=== PATIENT | male | born 1960 | race Caucasian/White ===

== ENCOUNTER 2024-02-21 | Emergency (ER) | payer OTHER ==
[2024-02-21] MEDS ORDERED: SMZ./TMP. 800/160 MG TABLET ONE (00:18)
--- NOTE | 2024-02-21 00:19 | EDPHYS ---
Physician Documentation [facility] Name: Derrek Wood Age: 63 yrs Sex: Male : 1960 Arrival Date: 02/21/2024 Time: 00:00 Bed 7 Private MD: ED Physician Ana Patton HPI: 02/20 00:16 This 63 yrs old Male presents to ER via Unassigned with complaints of Rash. sp3 00:16 63-year-old male with no past medical history on no medications presents to the ED with sp3 chief complaint rash bilateral lower extremities with streaking after multiple mosquito bites that occurred yesterday. He contacted his PCP who suggested he come to the ED for evaluation. He denies any other symptoms including fever, URI symptoms, headache, chest pain, shortness of breath, other upper body rash, oropharyngeal swelling, syncope, near syncope, rash anywhere else, pruritus, or any other signs or symptoms on ROS at this time.'. Historical: - Allergies: 00:16 No Known Allergies; cm10 - Home Meds: 00:16 None [Active]; cm10 - PMHx: 00:16 None; cm10 - PSHx: 00:16 None; cm10 - Immunization history:: Adult Immunizations up to date. - Infectious Disease History:: Denies. - Social history:: Smoking status: Patient denies any tobacco usage or history of. ROS: 00:16 Constitutional: Negative for fever, chills, and weight loss, Eyes: Negative for injury, sp3 pain, redness, and discharge, ENT: Negative for injury, pain, and discharge, Neck: Negative for injury, pain, and swelling, Cardiovascular: Negative for chest pain, palpitations, and edema, Respiratory: Negative for shortness of breath, cough, wheezing, and pleuritic chest pain, Abdomen/GI: Negative for abdominal pain, nausea, vomiting, diarrhea, and constipation, Back: Negative for injury and pain, Neuro: Negative for headache, weakness, numbness, tingling, and seizure, Psych: Negative for depression, anxiety, suicide ideation, homicidal ideation, and hallucinations, Allergy/Immunology: Negative for hives, rash, and allergies, Endocrine: Negative for neck swelling, polydipsia, polyuria, polyphagia, and marked weight changes, Hematologic/Lymphatic: Negative for swollen nodes, abnormal bleeding, and unusual bruising, 00:16 All other systems are negative, Exam: 00:17 Constitutional: This is a well developed, well nourished patient who is awake, alert, sp3 and in no acute distress. Head/Face: Normocephalic, atraumatic. Eyes: Pupils equal round and reactive to light, extra-ocular motions intact. Lids and lashes normal. Conjunctiva and sclera are non-icteric and not injected. Cornea within normal limits. Periorbital areas with no swelling, redness, or edema. ENT: Nares patent. No nasal discharge, no septal abnormalities noted. External auditory canals are clear. Oropharynx with no redness, swelling, or masses, exudates, or evidence of obstruction, uvula midline. Mucous membranes moist. Neck: Trachea midline, no thyromegaly or masses palpated, and no cervical lymphadenopathy. Supple, full range of motion without nuchal rigidity, or vertebral point tenderness. No Meningismus. Chest/axilla: Normal chest wall appearance and motion. Nontender with no deformity. No lesions are appreciated. Cardiovascular: Regular rate and rhythm with a normal S1 and S2. No gallops, murmurs, or rubs. Normal PMI, no JVD. No pulse deficits. Respiratory: Lungs have equal breath sounds bilaterally, clear to auscultation and percussion. No rales, rhonchi or wheezes noted. No increased work of breathing, no retractions or nasal flaring. Abdomen/GI: Soft, non-tender, with normal bowel sounds. No distension or tympany. No guarding or rebound. No evidence of tenderness throughout. Back: No spinal tenderness. No costovertebral tenderness. Full range of motion. Neuro: Awake and alert, GCS 15, oriented to person, place, time, and situation. Cranial nerves II-XII grossly intact. Motor strength 5/5 in all extremities. Sensory grossly intact. Cerebellar exam normal. Normal gait. Psych: Awake, alert, with orientation to person, place and time. Behavior, mood, and affect are within normal limits. 00:17 Musculoskeletal/extremity: Multiple mosquito bites on lower extremities from the fajardo below. 4-5 streaks combined in both legs ascending up to the knee and distal thigh level. Streaks are blanching and nonraised and nonpainful.. Vital Signs: 00:16 BP 140 / 89; Pulse 89; Resp 18; Temp 97.8; Pulse Ox 98% ; Weight 103.6 kg; Height 6 ft. cm10 3 in. ; Pain 0/10; 00:16 Body Mass Index 28.55 (103.60 kg, 190.5 cm) cm10 00:16 Pain Scale: Adult cm10 MDM: 00:08 Patient medically screened. sp3 00:17 Data reviewed: vital signs, nurses notes. ED course: 63-year-old male with allergic sp3 reaction versus early cellulitis. Will err on the side of cellulitis and administer Bactrim given penetration of the skin from the mosquito bites. Follow-up with PCP as needed. There is no necrosis, sepsis, shock or any other critical pathology at this time.. Administered Medications: 00:23 Drug: Trimethoprim-Sulfamethoxazole PO (160 mg-800 mg (DS) 1 tablet PO once Route: PO; jj7 00:24 Follow up: Response: No adverse reaction jj7 Disposition Summary: 02/21/24 00:18 Discharge Ordered Notes: Location: Home sp3 Condition: Stable sp3 Diagnosis - Cellulitis, unspecified sp3 Followup: sp3 - With: Private Physician - When: Upon discharge from the Emergency Department - Reason: Continuance of care Discharge Instructions: - Discharge Summary Sheet sp3 - Cellulitis, Adult sp3 Forms: - Medication Reconciliation Form sp3 - Thank You Letter sp3 - Antibiotic Education sp3 - Prescription Opioid Use sp3 - Patient Portal Instructions sp3 - Leadership Thank You Letter sp3 Prescriptions: - Bactrim DS 800-160 mg Oral Tablet - take 1 tablet ORAL route every 12 hours for 7 days; 14 tablet; Refills: 0, sp3 Product Selection Permitted Signatures: Ana Patton MD MD sp3 Duane Boyer RN RN jj7 Pia Wilson RN RN cm10
--- NOTE | 2024-02-21 00:19 | ER ---
Nurse's Notes [facility] Name: Derrek Wood Age: 63 yrs Sex: Male : 1960 Arrival Date: 02/21/2024 Time: 00:00 Bed 7 Private MD: Diagnosis: Cellulitis, unspecified Presentation: 02/20 00:16 Chief complaint: Patient states: Rash to bilateral legs onset tonight. Pt states that cm10 the rash itches, no pain. Coronavirus screen: Client denies travel out of the [place] in the last 14 days. At this time, the client does not indicate any symptoms associated with coronavirus-19. Ebola Screen: Patient denies travel to an Ebola-affected area in the 21 days before illness onset. No symptoms or risks identified at this time. Initial Sepsis Screen: Does the patient meet any 2 criteria? No. Patient's initial sepsis screen is negative. Does the patient have a suspected source of infection? No. Patient's initial sepsis screen is negative. Risk Assessment: Do you want to hurt yourself or someone else? Patient reports no desire to harm self or others. Onset of symptoms was February 21, 2024. 00:16 Method Of Arrival: Ambulatory cm10 00:16 Acuity: AVNI 4 cm10 Historical: - Allergies: 00:16 No Known Allergies; cm10 - Home Meds: 00:16 None [Active]; cm10 - PMHx: 00:16 None; cm10 - PSHx: 00:16 None; cm10 - Immunization history:: Adult Immunizations up to date. - Infectious Disease History:: Denies. - Social history:: Smoking status: Patient denies any tobacco usage or history of. Screenin:15 [facility] ED Fall Risk Assessment (Adult) History of falling in the last 3 months, jj7 including since admission No falls in past 3 months (0 pts) Confusion or Disorientation No (0 pts) Intoxicated or Sedated No (0 pts) Impaired Gait No (0 pts) Mobility Assist Device Used No (0 pt) Altered Elimination No (0 pt) Score/Fall Risk Level 0 - 2 = Low Risk Oriented to surroundings, Maintained a safe environment, Educated pt \T\ family on fall prevention, incl call for assistance when getting out of bed. Abuse screen: Denies threats or abuse. Nutritional screening: No deficits noted. Tuberculosis screening: No symptoms or risk factors identified. Assessment: 00:15 Pain: Denies pain. Derm: Rash noted that is red, on right fajardo. jj7 00:15 General: Appears in no apparent distress. comfortable, Behavior is calm, cooperative, jj7 appropriate for age. Vital Signs: 00:16 BP 140 / 89; Pulse 89; Resp 18; Temp 97.8; Pulse Ox 98% ; Weight 103.6 kg; Height 6 ft. cm10 3 in. ; Pain 0/10; 00:16 Body Mass Index 28.55 (103.60 kg, 190.5 cm) cm10 00:16 Pain Scale: Adult cm10 ED Course: 00:04 Patient arrived in ED. jj6 00:06 Ana Patton MD is Attending Physician. sp3 00:15 Patient has correct armband on for positive identification. Bed in low position. Call jj7 light in reach. Adult w/ patient. Client placed on continuous cardiac and pulse oximetry monitoring. NIBP monitoring applied. 00:15 No provider procedures requiring assistance completed. jj7 00:17 Triage completed. cm10 00:17 Arm band placed on. cm10 00:21 Duane Boyer, RN is Primary Nurse. jj7 00:25 Patient did not have IV access during this emergency room visit. jj7 Administered Medications: 00:23 Drug: Trimethoprim-Sulfamethoxazole PO (160 mg-800 mg (DS) 1 tablet PO once Route: PO; jj7 00:24 Follow up: Response: No adverse reaction jj7 Medication: 00:15 VIS not applicable for this client. jj7 Outcome: 00:18 Discharge ordered by . sp3 00:25 Discharged to home ambulatory, with significant other, jj7 00:25 Condition: good 00:25 Discharge instructions given to patient, Instructed on discharge instructions, medication usage, Demonstrated understanding of instructions, medications, Prescriptions given X 1, 00:25 Patient left the ED. jj7 Signatures: Ana Patton MD MD sp3 Mariangel Corado jj6 Duane Boyer, RN RN jj7 Pia Wilson RN RN cm10 Corrections: (The following items were deleted from the chart) 00:25 00:15 Derm: Rash noted that is red, on right fajardo jj7 jj7
[2024-02-21 03:53] VITALS: BP 140/89; TEMP 97.8; O2SAT 98
== END 2024-02-21 00:25 | disposition home or self-care (01) ==
LOC: ER
DX: L03.116 Cellulitis of left lower limb (principal); L03.115 Cellulitis of right lower limb
CPT/HCPCS: 99283